=== PATIENT | female | born 1995 | race Caucasian/White ===

== ENCOUNTER 2017-02-22 15:03 | Emergency (ER) | payer OTHER ==
[~2017-02-22] VITALS: Ht 167.6 cm; Wt 88.7 kg
[~2017-02-22 15:03] MED LIST: ATARAX,VISTARIL25 MG PO; CIPRO250 MG PO; DOXYCYCLINE HY100 MG PO; FLONASE16 G1 BOTH NARES; KEFLEX500 MG PO; MOTRIN600 MG PO; MUCUS ER600 MG PO; NORCO 5/3251 TABLET PO; PEPCID40 MG PO; ROBITUSSIN NIG118 ML PO; TESSALON PERLE100 MG PO; VENTOLIN HFA18 GM IH
[2017-02-22 16:43] VITALS: BP 127/82
== END 2017-02-22 16:44 | disposition home or self-care (01) ==
LOC: EME 15:03
DX: J06.9 Acute upper respiratory infection, unspecified (principal); O26.891 Other specified pregnancy related conditions, first trimester; F17.200 Nicotine dependence, unspecified, uncomplicated
CPT/HCPCS: 71020; 99281; 99284